=== PATIENT | male | born 1995 | race Caucasian/White ===

== ENCOUNTER 2018-04-25 09:26 | Outpatient (CLI) | payer OTHER ==
--- NOTE | 2018-04-25 11:25 | ULT ---
ULTRASOUND ABDOMEN LIMITED: (RIGHT UPPER QUADRANT) HISTORY: 22-year-old male with epigastric pain, R10.13. FINDINGS: The gallbladder has normal wall thickness and has no evidence of gallstones or sludge. There is a ti ny, immobile, approximately 3 mm echogenic structure adherent to the nondependent portion of the gall bladder wall protruding into the lumen in the proximal body of the gallbladder. The hepatic echogenic ity is normal. The right kidney has normal echogenicity, and there is no hydronephrosis. The pancre as is visualized, although ultrasound is relatively insensitive for pancreatic pathology compared to CT and MRI. There is no biliary dilation. The common duct caliber is 3 mm. IMPRESSION: 1. Incidental finding of tiny probable gallbladder polyp. 2. Otherwise normal. jn POS: [facility]
== END 2018-04-25 09:27 | disposition home or self-care (01) ==
LOC: ULT 09:26
PROVIDERS: ATTEND Internal Medicine Gastroenterology
DX: K59.09 Other constipation (principal); R10.13 Epigastric pain; R14.2 Eructation
CPT/HCPCS: 76705